=== PATIENT | male | born 1995 | race African-American/Black ===

== ENCOUNTER 2022-10-10 18:09 | Emergency (ER) | payer OTHER ==
[~2022-10-10] VITALS: Ht 188 cm; Wt 95.0 kg
[2022-10-10] MEDS ORDERED: IBUPROFEN 600MG TABLET PO ONE (18:15)
[2022-10-10] MEDS ORDERED: IBUP-2029 MT (18:48)
[2022-10-10 19:05] VITALS: BP 135/72
== END 2022-10-10 19:10 ==
LOC: ER 18:09
DX: S62.309A Unspecified fracture of unspecified metacarpal bone, initial encounter for closed fracture (principal); X58.XXXA Exposure to other specified factors, initial encounter; Y93.89 Activity, other specified; Y92.89 Other specified places as the place of occurrence of the external cause; Y99.8 Other external cause status
CPT/HCPCS: 73130; 99283